=== PATIENT | male | born 1990 | race Caucasian/White ===

== ENCOUNTER 2017-02-10 17:40 | Emergency (ER) | payer BC, OTHER ==
[2017-02-10 18:35] VITALS: BP 109/68
--- NOTE | 2017-02-10 19:11 | UC ---
Respiratory Complaint HPI - HPI Summary HPI Summary: 27 y/o male present to the urgent care c/o persistent cough for the past 2 weeks. Pt states he can hear some rales in his Rt upper lobe. Pt has taking Mucinx w/o any improvement of symptoms. He has felt SOB at time. Cough is productive with yellowish phlegm. Pt denies nasal congestion, sore throat, chest pain, N/V/D, abdominal pain. Pt works as an EMT. - History of Current Complaint Chief Complaint: UCRespiratory Stated Complaint: URI Time Seen by Provider: 02/10/17 19:10 Hx Obtained From: Patient Onset/Duration: Gradual Onset, Lasting Weeks - 2 weeks, Still Present Timing: Constant Severity Initially: Mild Severity Currently: Moderate Pain Intensity: 0 Pain Scale Used: 0-10 Numeric Character: Sputum Description: - yellowish and brown at times Aggravating Factors: Nothing Alleviating Factors: Nothing Associated Signs And Symptoms: Positive: Dyspnea - at times. Negative: Fever, Wheezing - Risk Factors Pulmonary Embolism Risk Factors: Negative Cardiac Risk Factors: Negative Pseudomonas Risk Factors: Negative Tuberculosis Risk Factors: Negative - Allergies/Home Medications Allergies/Adverse Reactions: Allergies Allergy/AdvReac Type Severity Reaction Status Date / Time No Known Allergies Allergy Verified 02/10/17 18:35 Home Medications: Home Medications Levocarnitine [l-Carnitine] 2 tab PO DAILY 02/10/17 [History Confirmed 02/10/17] Shred Fx - Testosterone Booster 2 tab PO DAILY 02/10/17 [History Confirmed 02/10] PMH/Surg Hx/FS Hx/Imm Hx Previously Healthy: Yes - Pt denies PMHX - Surgical History Surgical History: None - Family History Known Family History: Positive: Diabetes - Social History Occupation: Employed Full-time Lives: With Family Alcohol Use: Rare Substance Use Type: None Smoking Status (MU): Never Smoked Tobacco Review of Systems Constitutional: Negative Skin: Negative Eyes: Negative ENT: Negative Respiratory: Shortness Of Breath, Cough - productive yellow phlegm Gastrointestinal: Negative Genitourinary: Negative Motor: Negative Neurovascular: Negative Musculoskeletal: Negative Neurological: Negative Psychological: Negative Is Patient Immunocompromised?: No All Other Systems Reviewed And Are Negative: Yes Physical Exam Triage Information Reviewed: Yes Appearance: Well-Appearing, No Pain Distress, Well-Nourished, Thin Vital Signs: Initial Vital Signs Temp 98.5 F 02/10/17 18:31 Pulse 61 02/10/17 18:31 Resp 16 02/10/17 18:31 BP 109/68 02/10/17 18:31 Pulse Ox 99 02/10/17 18:31 Vital Signs Reviewed: Yes Eye Exam: Normal Eyes: Positive: Conjunctiva Clear - PERRLA ,EOMI ENT Exam: Normal ENT: Positive: Normal ENT inspection, Hearing grossly normal, Pharynx normal, TMs normal Dental Exam: Normal Neck exam: Normal Neck: Positive: Supple, Nontender, No Lymphadenopathy Respiratory: Positive: Chest non-tender, Normal breath sounds, No respiratory distress, Crackles - superior anterior and posteriot RT lungs with scattered crackles, Rhonchi Cardiovascular Exam: Normal Cardiovascular: Positive: RRR, No Murmur, Pulses Normal Abdominal Exam: Normal Abdomen Description: Positive: Nontender, No Organomegaly, Soft. Negative: CVA Tenderness (R), CVA Tenderness (L) Bowel Sounds: Positive: Present Musculoskeletal Exam: Normal Musculoskeletal: Positive: Strength Intact, ROM Intact, No Edema Neurological Exam: Normal Psychological Exam: Normal Skin Exam: Normal UC Diagnostic Evaluation - Laboratory O2 Sat by Pulse Oximetry: 99 Respiratory Course/Dx - Course Course Of Treatment: 27 y/o male present to the urgent care c/o persistent cough for the past 2 weeks. Pt states he can hear some rales in his Rt upper lobe. Pt has taking Mucinex w/o any improvement of symptoms. He has felt SOB at time. Cough is productive with yellowish phlegm. Pt denies nasal congestion, sore throat, chest pain, N/V/D, abdominal pain. Pt works as an EMT. Hx obtained. PE abnormal findings: Respiratory: Positive: Chest non-tender, Normal breath sounds, No respiratory distress, Crackles - superior anterior and posteriot RT lungs with scattered crackles, Rhonchi. Chest X-ray ordered: negative, no active disease. Pt will be Tx for Acute Bronchitis. Rx Z-kena and Tessalon tabs PO to alleviate cough. Pt advised If symptoms do not improve or worsen or you develop SOB with fever pleas go to the ER for further treatment.Pt understood and agreed an left the clinic ambulating. - Differential Dx/Diagnosis Differential Diagnosis/HQI/PQRI: Asthma, Bronchitis, Influenza, Lower Resp Infection, Sinusitis, Other Provider Diagnoses: 1-Acute bronchitis Discharge - Discharge Plan Condition: Stable Disposition: HOME Prescriptions: Azithromycin TAB* [Zithromax TAB*] 250 mg PO DAILY #6 tab Benzonatate CAP* [Tessalon CAP*] 100 - 200 mg PO TID PRN #28 cap PRN Reason: Cough Patient Education Materials: Acute Bronchitis (ED) Referrals: No Primary Care Phys,NOPCP [Primary Care Provider] - If Needed Additional Instructions: 1-Please take full course of antibiotic to avoid resistance. 2-Take Tessalon PO tabs as directed and use the albuterol inhaler to alleviate sough. Increase fluid intake, rest and eat well. 3- If symptoms do not improve or worsen or you develop SOB with fever pleas go to the ER for further treatment.
--- NOTE | 2017-02-10 19:41 | RAD ---
INDICATION: Cough with shortness of breath COMPARISON: None TECHNIQUE: PA and lateral dual-energy views were obtained. FINDINGS: Bones/Soft Tissues: There are no acute bony findings. Cardiomediastinal: The cardiomediastinal silhouette is normal. Lungs: There are no infiltrates. Pleura: There are no pleural effusions. Other: None IMPRESSION: NO ACTIVE DISEASE.
== END 2017-02-10 20:01 | disposition home or self-care (01) ==
LOC: UCEAST 17:40
DX: J20.9 Acute bronchitis, unspecified (principal)
CPT/HCPCS: 71020; 99212; G0463

== ENCOUNTER 2017-09-03 06:01 | Emergency (ER) | payer OTHER, BC ==
[2017-09-03 06:41] VITALS: BP 130/78
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
== END 2017-09-03 06:40 | disposition home or self-care (01) ==
LOC: ED 06:01
DX: Z77.21 Contact with and (suspected) exposure to potentially hazardous body fluids (principal)
CPT/HCPCS: 36415; 80074; 86703; 99282

== ENCOUNTER 2019-06-14 18:05 | Emergency (ER) | payer OTHER ==
--- OUTSIDE RECORDS SUMMARY | 2019-06-14 19:16 | XMS REPORT | Continuity of Care Document ---
:1990 External Reference #:[id number] Demographics Address [address] [facility] [address] [place] [address] Home Phone [phone] Mobile Phone [phone] Email Address Preferred Language en Marital Status Not or Rastafari Affiliation Unknown Race White Ethnic Group Not or Author Name Dalia Wooten, PNP-BC, [employer], Ibclc Address [address] [place] [id number] Care Team Providers Name Role Phone Charu Hauser PA - Medical Care Team Information [employer] [phone] Charu Hauser PA - Medical Care Team Information [employer] [phone] Problems Active Problems Provider Date Genital warts Hema Lai M.D. Onset: 03/24/2019 Social History Type Date Description Comments Sex Unknown ETOH Use Currently consumes Drinks once in a alcohol socially while. 2 drinks max Tobacco Use Start: Unknown Patient denies history tried it for 1 week of smoking in college. Recreational Drug Use Denies Drug Use Smoking Status Reviewed: 06/08/19 Patient denies history tried it for 1 week of smoking in college. Exercise Type/Frequency Exercises regularly 5 days a week cardio and functional fitness. Allergies, Adverse Reactions, Alerts Description No Known Drug Allergies Medications Active Medications SIG Qnty Indications Ordering Date Provider Cyclobenzaprine HCL take one tablet 30tabs M62.830 Dalia Wooten, 2019 5mg by mouth three PNP-BC, [employer], Tablets times a day as Ibclc needed for muscle spasms History Medications No Active Unknown 05/20/2019 - Medications 06/08/2019 Saline Nasal [place] 2 sprays intranasal 1units J06.9 Bart Eli MD 2018 - every 2 hours 05/20/2019 0.65% Solution congestion or nasal dryness Immunizations CPT Code Status Date Vaccine Lot # [id number] Given 03/31/2019 Influenza Virus Vaccine, Quadrivalent, 36 Mos+, [id number] [id number] Given 1992 Hemophilus Influenza B 12312 Given 1992 DTP Vaccine 29089 Given 1992 Hemophilus Influenza B 30989 Given 1992 Poliovirus Vaccine Oral 52572 Given 1992 DTP Vaccine Vital Signs Date Vital Result Comment 06/08/2019 11:16am BP Systolic 118 mmHg BP Diastolic 72 mmHg Heart Rate 82 /min Respiratory Rate 17 /min Height 71 inches 5'11" Pt stated Weight 212.00 lb BMI (Body Mass Index) 29.6 kg/m2 BSA (Body Surface Area) 2.16 m2 [place] body weight in kilograms 78 kg 05/20/2019 8:55am BP Systolic 122 mmHg BP Diastolic 76 mmHg Body Temperature 97.5 F Heart Rate 58 /min Respiratory Rate 16 /min Height 71 inches 5'11" Pt stated Weight 210.00 lb Pain Level 0 BMI (Body Mass Index) 29.3 kg/m2 BSA (Body Surface Area) 2.15 m2 [place] body weight in kilograms 78 kg O2 % BldC Oximetry 98 % Results Description No Information Available Procedures Date Code Description Status 04/20/2019 46391 Destruction Penis Lesion(S) Simple Laser Surgery Completed 03/21/2019 89334 Excision Of Warts Less Than 15 Completed Medical Devices Description No Information Available Encounters Type Date Location Provider Dx Diagnosis Office Visit 06/08/2019 Family Medicine Dalia Wooten, M62.830 Muscle spasm of 11:15a [place] PNP-BC, [employer], back Ibclc Office Visit 05/20/2019 Urology Hema Lai, A63.0 Anogenital 9:00a [place] (venereal) warts Office Visit 03/31/2019 Family Medicine Bart Eli MD J06.9 Acute upper 8:10a [address] respiratory infection, unspecified Z23 Encounter for immunization Office Visit 03/24/2019 8:45a Urology Kassie Lai3.0 Anogenital [place] (venereal) warts Office Visit 03/21/2019 8:15a Family Medicine Charu Hauser, B07.9 Viral wart, [address] [place] unspecified Assessments Date Code Description Provider 06/08/2019 M62.830 Muscle spasm of back Dalia Wooten PNP-BC, [employer], Ibclc 05/20/2019 A63.0 Anogenital (venereal) warts Hema Lai M.D. 04/20/2019 A63.0 Anogenital (venereal) warts Hema Lai M.D. 03/31/2019 J06.9 Acute upper respiratory infection, Bart Eli MD unspecified 03/31/2019 Z23 Encounter for immunization Bart Eli MD 03/24/2019 A63.0 Anogenital (venereal) warts Hema Lai M.D. 03/21/2019 B07.9 Viral wart, unspecified Charu Hauser PA 02/08/2019 Z00.01 Encounter for general adult medical Charu Hauser PA examination with abnormal findings 02/08/2019 A63.0 Anogenital (venereal) warts Charu Hauser PA 02/08/2019 B07.9 Viral wart, unspecified Charu Hauser PA Plan of Treatment Future Appointment(s):06/16/2019 3:45 pm - Dalia Wooten, EDI-BC, [employer], Ibclc at [facility] RD06/08/2019 - Dalia Wooten PNP-BC, [employer], MrbuwO86.830 Muscle spasm of backNew Medication:Cyclobenzaprine HCL 5 mg - take one tablet by mouth three times a day as needed for muscle spasmsComments:continue with 600mg motrin tid for 5-7 days and use the cyclobenzaprine. and a massage would be a good idea.we'll have you on light duty for a week and see how it's going. if it's not better let us know and we'll get you into PT and get an xray. Functional Status Description No Information Available Mental Status Description No Information Available Referrals Refer to Dr Reason for Referral Status Appt Date Hema Lai M.D. Genital warts. Has been using Imiquimod. Closed 2018 Lesions are very slowly resolving. However, he does have some new ones as well. [address], [place] [address] [phone]
--- OUTSIDE RECORDS SUMMARY | 2019-06-14 19:16 | XMS REPORT | Continuity of Care Document ---
:1990 External Reference #:[id number] Demographics Address [address] [facility] [address] [place] [address] Home Phone [phone] Mobile Phone [phone] Email Address Preferred Language en Marital Status Not or Scientology Affiliation Unknown Race White Ethnic Group Not or Author Name Hema Lai M.D. Address [address] [address] Care Team Providers Name Role Phone Charu Hauser PA - Medical Care Team Information Material Dispatcher [phone] Charu Hauser PA - Medical Care Team Information Material Dispatcher [phone] Problems Active Problems Provider Date Genital warts Hema Lai M.D. Onset: 03/24/2019 Social History Type Date Description Comments Sex Unknown ETOH Use Currently consumes Drinks once in a alcohol socially while. 2 drinks max Tobacco Use Start: Unknown Patient denies history tried it for 1 week of smoking in college. Recreational Drug Use Denies Drug Use Smoking Status Reviewed: 05/03/19 Patient denies history tried it for 1 week of smoking in college. Exercise Type/Frequency Exercises regularly 5 days a week cardio and functional fitness. Allergies, Adverse Reactions, Alerts Description No Known Drug Allergies Medications Active Medications SIG Qnty Indications Ordering Provider Date No Active Medications Unknown 05/20/2019 History Medications Saline Nasal [place] 2 sprays intranasal 1units J06.9 Bart Eli MD 2018 - every 2 hours 05/20/2019 0.65% Solution congestion or nasal dryness Immunizations CPT Code Status Date Vaccine Lot # [id number] Given 03/31/2019 Influenza Virus Vaccine, Quadrivalent, 36 Mos+, [id number] 32165 Given 1992 Hemophilus Influenza B 11326 Given 1992 DTP Vaccine 08761 Given 1992 Hemophilus Influenza B 71447 Given 1992 Poliovirus Vaccine Oral 30043 Given 1992 DTP Vaccine Vital Signs Date Vital Result Comment 05/20/2019 8:55am BP Systolic 122 mmHg BP Diastolic 76 mmHg Body Temperature 97.5 F Heart Rate 58 /min Respiratory Rate 16 /min Height 71 inches 5'11" Pt stated Weight 210.00 lb Pain Level 0 BMI (Body Mass Index) 29.3 kg/m2 BSA (Body Surface Area) 2.15 m2 [place] body weight in kilograms 78 kg O2 % BldC Oximetry 98 % 03/31/2019 8:17am BP Systolic Sitting Left Arm 118 mmHg BP Diastolic Sitting Left Arm 74 mmHg Body Temperature 98.7 F Heart Rate 76 /min Respiratory Rate 18 /min Height 71 inches 5'11" Pt stated Weight 208.00 lb BMI (Body Mass Index) 29.0 kg/m2 BSA (Body Surface Area) 2.14 m2 [place] body weight in kilograms 78 kg Results Description No Information Available Procedures Date Code Description Status 04/20/2019 76324 Destruction Penis Lesion(S) Simple Laser Surgery Completed 03/21/2019 78790 Excision Of Warts Less Than 15 Completed Medical Devices Description No Information Available Encounters Type Date Location Provider Dx Diagnosis Office Visit 05/20/2019 Urology Hema Lai, A63.0 Anogenital 9:00a [place]doD[place]inaldo (venereal) warts Office Visit 03/31/2019 Family Medicine Bart Eli MD J06.9 Acute upper 8:10a [address] respiratory infection, unspecified Z23 Encounter for immunization Office Visit 03/24/2019 8:45a Urology Kassie Lai3.0 Anogenital [place] (venereal) warts Office Visit 03/21/2019 8:15a Family Medicine Charu Hauser, B07.9 Viral wart, [address] [place] unspecified Assessments Date Code Description Provider 05/20/2019 A63.0 Anogenital (venereal) warts Hema Lai [...] unspecified Charu Hauser PA Plan of Treatment 05/20/2019 - Hema Lai M.D.A63.0 Anogenital (venereal) wartsComments: Status post Laser ablation of genital warts. There is no recurrence. Questions that the patient and his partner had were answered today. Patient to follow-up with me as needed. Functional Status Description No Information Available Mental Status Description No Information Available Referrals Refer to Dr Reason for Referral Status Appt Date Hema Lai M.D. Genital warts. Has been using Imiquimod. Closed 2018 Lesions are very slowly resolving. However, he does have some new ones as well. [address], [place] [address] [phone]
[2019-06-14 19:23] VITALS: BP 118/63
--- NOTE | 2019-06-14 19:26 | UC ---
Shoulder Pain HPI - HPI Summary HPI Summary: 29 yo male presents with RIGHT shoulder pain. 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 Since that time has had pain and feeling like his shoulder is going to "drop out". He saw his PCP for this and was dx'd with a muscle strain and placed on flexeril. Pt has taken the flexeril and it helps, but makes him feel "high" and sleepy. He has recently been packing for a household move and states his right shoulder has been feeling worse. He was given a note to have no lifting >20pounds while at work, which is helpful. No imaging was done. Denies numbness, tingling, or neck pain. - History of Current Complaint Chief Complaint: UCUpperExtremity Stated Complaint: SHOULDER PAIN INJURY Time Seen by Provider: 06/14/19 19:25 Hx Obtained From: Patient Onset/Duration: Sudden Onset Severity Initially: Moderate Severity Currently: Mild Pain Intensity: 4 Pain Scale Used: 0-10 Numeric - Allergies/Home Medications Allergies/Adverse Reactions: Allergies Allergy/AdvReac Type Severity Reaction Status Date / Time No Known Allergies Allergy Verified 06/14/19 19:20 Home Medications: Home Medications Cyclobenzaprine TAB* [Flexeril 10 MG TAB*] 10 mg PO Q8HR PRN 06/14/19 [History Confirmed 06/14/19] Ibuprofen TAB* [Motrin TAB* 600 MG] 600 mg PO Q6H PRN 06/14/19 [History Confirmed 06/14/19] PMH/Surg Hx/FS Hx/Imm Hx - Additional Past Medical History Additional PMH: None - Surgical History Surgical History: Yes Surgery Procedure, Year, and Place: wisdom teeth - Family History Known Family History: Positive: Diabetes, Non-Contributory - Social History Occupation: Employed Full-time Lives: With Family Alcohol Use: Occasionally Substance Use Type: None Smoking Status (MU): Never Smoked Tobacco Review of Systems All Other Systems Reviewed And Are Negative: No Constitutional: Positive: Negative Skin: Positive: Negative Respiratory: Positive: Negative Cardiovascular: Positive: Negative Gastrointestinal: Positive: Negative Neurovascular: Positive: Negative Musculoskeletal: Positive: Other: - Right shoulder pain Neurological: Positive: Negative Psychological: Positive: Negative Physical Exam - Summary Physical Exam Summary: GENERAL: NAD. WDWN. No pain distress. SKIN: No rashes, sores, lesions, or open wounds. CHEST: No accessory muscle use. Breathing comfortably and in no distress. CV: Pulses intact radial and ulnar. Cap refill <2seconds MSK: RIGHT SHOULDER: Mild TTP about supraspinatus. Pain with flexion against resistance. FROM. Strength 5/5. Negative apleys, empty can, stauffer-cira, neer, oscar, and yergason tests. NEURO: Alert. Sensations intact C4-T1 b/l. PSYCH: Age appropriate behavior. Triage Information Reviewed: Yes Vital Signs: Initial Vital Signs Temp 98.2 F 06/14/19 19:17 Pulse 78 06/14/19 19:17 Resp 16 06/14/19 19:17 BP 118/63 06/14/19 19:17 Pulse Ox 100 06/14/19 19:17 Vital Signs Reviewed: Yes Diagnostics - Radiology Shoulder XR Radiology Interpretation Completed By: ED Physician Summary of Radiographic Findings: No acute process Shoulder Course/Dx - Course Course Of Treatment: XR wet read negative. Suspect muscle strain/RTC injury. Advised to rest, ice, and will keep <20pound weight restriction. Will switch to naproxen and robaxin and have him f/u with Occ Med for further evaluation of his work related injury. - Differential Dx/Diagnosis Provider Diagnosis: Right shoulder pain Discharge ED - Sign-Out/Discharge Documenting (check all that apply): Patient Departure All imaging exams completed and their final reports reviewed: No - Discharge Plan Condition: Stable Disposition: HOME Prescriptions: Methocarbamol TAB* [Robaxin 500 MG TAB*] 1,000 mg PO Q6H PRN #40 tab PRN Reason: Spasms Naproxen [Naproxen 500 mg tab] 500 mg PO BID PRN #30 tablet.dr PRN Reason: Pain - Mild Patient Education Materials: Shoulder Pain (ED) Forms: *Work Release Referrals: Aron Fernandes MD [Medical Doctor] - As Soon As Possible Charu Hauser PA [Primary Care Provider] - Additional Instructions: If you develop a fever, shortness of breath, chest pain, new or worsening symptoms - please call your PCP or go to the ED immediately. 1) Rest and Ice your shoulder to decrease pain 2) I recommend that you call Physical therapy to schedule an appointment for further treatment 3) I recommend that you call Dr. Fernandes (Occupational Health) to schedule an appointment for further evaluation of your work related injury 4) Keep your follow up with your Primary doctor for a recheck in 2 days Do not take ibuprofen with naproxen as these medications are related and may interact - Billing Disposition and Condition Condition: STABLE Disposition: Home
--- NOTE | 2019-06-15 11:55 | UC ---
- Progress Note Progress Note: Patient Name: JESUS PENDLETON Medical Record#: [id number] Ordering Physician: Axel AQUINO Acct.#: [id number] : 1990 Age: 29 Sex: M Location: [facility] Exam Date: 06/14/191924 ADM Status: [facility] ER Order Information: SHOULDER RIGHT 2+ VWS Accession Number: [id number] CPT: 67861 INDICATION: Right shoulder injury. TECHNIQUE: 4 views of the right shoulder were obtained. FINDINGS: The bones are in normal alignment. No fracture is seen. The glenohumeral and acromioclavicular joint spaces appear maintained. IMPRESSION: NO EVIDENCE FOR FRACTURE. R0 Preliminary Imaging Read R0 <Electronically signed by Deangelo Preston MD in OV> 06/15/19714 Dictated By: Deangelo Preston MD Dictated Date/Time: 06/15/19713 Transcribed Date/Time: 06/15/19713 Copy to: CC:Flor Franco MD; Charu AQUINO; Axel AQUINO Imaging - [facility] Imaging [facility] Urgent [facility] [address] [place] [address] ph [phone]) ph ([phone]) ph ([phone]) This report is only to be considered final once signed by the Provider(s) as displayed in the "<Electronically Signed by >" field (s). Absence of a signature indicates the report is in a draft status and still needs to be finalized. In the event this document was created by someone other than the signing Provider, the individual initiating the document will be listed in the "Entered by:" or "Dictated by:" garcia. 1 of 1 Course/Dx - Diagnoses Provider Diagnoses: Right shoulder pain Discharge ED - Sign-Out/Discharge Documenting (check all that apply): Post-Discharge Follow Up All imaging exams completed and their final reports reviewed: Yes - Discharge Plan Condition: Stable Disposition: HOME Prescriptions: Methocarbamol TAB* [Robaxin 500 MG TAB*] 1,000 mg PO Q6H PRN #40 tab PRN Reason: Spasms Naproxen [Naproxen 500 mg tab] 500 mg PO BID PRN #30 tablet.dr KWONG Reason: Pain - Mild Patient Education Materials: Shoulder Pain (ED) Forms: *Work Release Referrals: Aron Fernandes MD [Medical Doctor] - As Soon As Possible Charu Hauser PA [Primary Care Provider] - Additional Instructions: If you develop a fever, shortness of breath, chest pain, new or worsening symptoms - please call your PCP or go to the ED immediately. 1) Rest and Ice your shoulder to decrease pain 2) I recommend that you call Physical therapy to schedule an appointment for further treatment 3) I recommend that you call Dr. Fernandes (Occupational Health) to schedule an appointment for further evaluation of your work related injury 4) Keep your follow up with your Primary doctor for a recheck in 2 days Do not take ibuprofen with naproxen as these medications are related and may interact - Billing Disposition and Condition Condition: STABLE Disposition: Home
== END 2019-06-14 19:59 | disposition home or self-care (01) ==
LOC: UCCORT 18:05
DX: M25.511 Pain in right shoulder (principal); X50.9XXA Other and unspecified overexertion or strenuous movements or postures, initial encounter; Y93.89 Activity, other specified; Y92.9 Unspecified place or not applicable; Y99.0 Civilian activity done for income or pay
CPT/HCPCS: 99212; G0463

== ENCOUNTER 2019-09-24 10:57 | Emergency (ER) | payer OTHER ==
--- OUTSIDE RECORDS SUMMARY | 2019-09-24 11:13 | XMS REPORT | Continuity of Care Document ---
:1990 External Reference #:[id number] Author Name Dalia Wooten, PNP-BC, CONFERENCE TRANSLATOR, Ibclc (transmitted by agent of provider Katiuska Garrison) Address [address] [place], [place] [address] [address] [place] [id number] Care Team Providers Name Role Phone Charu Hauser PA - Medical Care Team Information Home Health Aide Caregiver [phone] Charu Hauser PA - Medical Care Team Information Home Health Aide Caregiver [phone] Problems Active Problems Provider Date Adjustment disorder with mixed emotional Charu Hauser PA Onset: 06/27/2019 features Genital warts Hema Lai M.D. Onset: 03/24/2019 Social History Type Date Description Comments Sex Unknown ETOH Use Rarely consumes alcohol Tobacco Use Start: Unknown Patient denies history tried it for 1 week of smoking in college. Recreational Drug Use Denies Drug Use Smoking Status Reviewed: 08/18/19 Patient denies history tried it for 1 week of smoking in college. Exercise Type/Frequency Exercises regularly 5 days a week cardio and functional fitness. Allergies, Adverse Reactions, Alerts Description No Known Drug Allergies Medications Active Medications SIG Qnty Indications Ordering Provider Date Escitalopram Oxalate 1 by mouth 90tabs F43.23 Angelia Castaneda MD 2019 5mg every day Tablets History Medications No Active Medications Unknown 06/27/2019 - 06/27/2019 Escitalopram Oxalate 1/2 by mouth 30tabs F43.23 Leonel 06/27/2019 - 10mg daily during MD Angelia 07/25/2019 Tablets first week, then increase to 1 by mouth every day Sildenafil Citrate 1-2 tab by mouth 30tabs F52.4 Leonel 06/27/2019 - 20mg as directed for MD Angelia 07/25/2019 Tablets ed Cyclobenzaprine HCL take one tablet 30tabs M62.830 Dalia Wooten, 2019 - 5mg by mouth three PNP-MARYELLEN LICONA, 06/16/2019 Tablets times a day as Ibclc needed for muscle spasms No Active Medications Unknown 05/20/2019 - 06/08/2019 Saline Nasal [place] 2 sprays 1units J06.9 Bart Eli, 03/31/2019 - 0.65% intranasal every 05/20/2019 Solution 2 hours congestion or nasal dryness Immunizations CPT Code Status Date Vaccine Lot # [id number] Given 03/31/2019 Influenza Virus Vaccine, Quadrivalent, 36 Mos+, [id number] 10972 Given 1990 Hemophilus Influenza B 99043 Given 1990 DTP Vaccine 06390 Given 1990 Hemophilus Influenza B 08240 Given 1990 Poliovirus Vaccine Oral 91434 Given 1990 DTP Vaccine Vital Signs Date Vital Result Comment 08/18/2019 2:53pm BP Systolic 138 mmHg BP Diastolic 82 mmHg Body Temperature 98.1 F Heart Rate 97 /min Respiratory Rate 18 /min Height 71 inches 5'11" Weight 214.00 lb BMI (Body Mass Index) 29.8 kg/m2 BSA (Body Surface Area) 2.17 m2 [place] body weight in kilograms 78 kg O2 % BldC Oximetry 97 % 08/17/2019 2:34pm BP Systolic 127 mmHg BP Diastolic 81 mmHg Body Temperature 99.2 F Heart Rate 89 /min Respiratory Rate 18 /min Height 71 inches 5'11" Weight 212.00 lb BMI (Body Mass Index) 29.6 kg/m2 BSA (Body Surface Area) 2.16 m2 [place] body weight in kilograms 78 kg O2 % BldC Oximetry 99 % Results Test Acquired Date Facility Test Result H/L Range Note Comprehensive 07/01/[address] [facility] [address] Glucose 105 mg/dL Normal 74- 106 1 Metabolic Panel [address] [place] [address] [phone] BUN 18 mg/dL Normal 7-18 Creatinine 1.1 mg/dL Normal 0.6-1.3 Glom Filtration Rate, Estimate >60 mL/min >60 If >60 mL/min >60 2 BUN/Creat 16.3 ratio Sodium 138 mmol/L Normal 136-145 Potassium 3.8 mmol/L Normal 3.5-5.1 Chloride 106 mmol/L Normal 98-107 Carbon Dioxide 27 mmol/L Normal 21-32 Anion Gap 5 mEq/L Low 8-16 Calcium 8.9 mg/dL Normal 8.5-10.1 Total Protein 7.7 g/dL Normal 6.4-8.2 Albumin 3.9 g/dL Normal 3.4-5.0 Globulin 3.8 g/dL Normal 1.9-4.3 Alb/Glob 1.0 ratio Bilirubin,Total 0.4 mg/dL Normal 0.2-1.0 Sgot/Ast 18 U/L Normal 15-37 SGPT/Alt 27 U/L Normal 12-78 Alkaline Phosphatase 66 U/L Normal 45-117 Reflex add FT3? Y Reflex add FT4? Y CBC W/Automated 07/01/[address] [facility] [address] White Blood 4.8 K/uL Normal 3.4-10.[address] Count [place], [place] [id number] [phone] Red Blood Count 5.25 M/uL Normal 4.20-5.80 Hemoglobin 15.9 gm/dL Normal 12.8-17.0 Hematocrit 45.7 % Normal 38.0-48.0 Mean Cell Volume 87.0 fl Normal 80.0-96.0 Mean Corpuscular HGB 30.3 pg Normal 27.0-33.0 Mean Corpuscular HGB Conc 34.8 g/dL Normal 31.7-36.0 Platelet Count 201 K/uL Normal 155-360 Red Cell Distri Width SD 38.5 fl Normal 36-51 Red Cell Distri Width %CV 12.0 % Normal 11.6-15.8 Mean Platelet Volume 11.5 fl High 6.6-10.6 Neut% 44.6 % Normal 33.0-73.0 Lymph % 40.1 % Normal 20.0-42.0 [place] % 9.5 % Normal 0.0-10.0 Eo% 5.0 % Normal 0.0-6.6 Bas% 0.6 % Normal 0.0-1.1 Immature Grans 0.2 % Normal 0.0-5.0 NRBC % 0.0 /100WBC < 10/ 100 WBC Neut# 2.16 K/uL Normal 1.8-7.0 Lymph # 1.94 K/uL Normal 1.0-4.0 [place] # 0.46 K/uL Normal 0.0-0.8 Eos # 0.24 K/uL Normal 0.0-0.5 Baso # 0.03 K/uL Normal 0.0-0.1 Immature Grans Absolute 0.01 K/uL NRBC # 0.00 K/uL TSH Reflex 07/01/[address] Thyroid Stim 3.41 uIU/mL Normal 0.30-4.20 FT4 And/Or [address] [facility] Hormone FT3 [place] [address] [phone] Reflex add FT3? Y Reflex add FT4? Y Laboratory test 07/01/[address] Testosterone Free 13.9 9.3- 26.5 3 finding [address] [facility] Direct pg/mL [place], [place] [id number] [phone] LDL Cholesterol 07/01/[address] Cholesterol 188 mg/dL <200 4 Profile [address] [place], [place] [id number] [phone] Triglycerides 116 mg/dL <150 5 HDL Cholesterol 44 mg/dL >40 6 LDL-Cholesterol 121 mg/dL < 100 7 Reflex add FT3? Y Reflex add FT4? Y Urine Dipstick 06/27/2019 [facility] Ua Color yellow Yellow Ua Clarity clear Clear Ua Leuko negative Negative Ua Nitrite negative Negative Ua Urobilinogen 3.5umol/L High 0.2 - 1.0 E.U./dL Ua Protein negative Negative Ua PH 7.0 6.5-7.5 Ua Blood negative Negative Ua Specific [place] 1.020 1.010-1.030 Ua Ketones negative Negative Ua Bilirubin negative Negative Ua Glucose negative Negative 1 F52.4 Z13.220 2 Note: Persistent reduction for 3 months or more in an eGFR <60 mL/min/1.73 m2 defines CKD. Patients with eGFR values >/=60 mL/min/1.73 m2 may also have CKD if evidence of persistent proteinuria is present. The original MDRD equation for estimated GFR is not valid for patients less than 18 years of age. Additional information may be found at www.kdoqi.org. 3 Performed at: [facility] [address] [id number] Data Reduction Technician: Debra Ayala MD, Phone: [phone] 4 Reference Guidelines*: Desirable: ........... < 200 mg/dL Borderline High: ..... 200-239 mg/dL High: ................ >= 240 mg/dL * The National Cholesterol Education Program (NCEP) 5 Reference Guidelines*: Normal: ............. < 150 mg/dL Borderline High: .... 150-199 mg/dL High: ............... 200-499 mg/dL Very High: .......... > 500 mg/dL * Source: National Cholesterol Education Program (NCEP) 6 Reference Guidelines*: Low HDL: ..... < 40 mg/dL Normal: ..... 40-60 mg/dL Desirable: ... > 60 mg/dL *The National Cholesterol Education Program(NCEP) 7 Reference Guidelines*: Optimal:........... <100 mg/dL Near Optimal....... 100-129 mg/dL Borderline High.... 130-159 mg/dL High............... 160-189 mg/dL Very High.......... >=190 mg/dL * Source: National Cholesterol Education Program (NCEP) Procedures Date Code Description Status 07/25/2019 01961 Brief Emotional/Behav Assessment W/ Scoring Doc Per Completed Standard Inst 06/27/2019 31786 Brief Emotional/Behav Assessment W/ Scoring Doc Per Completed Standard Inst 04/20/2019 32597 Destruction Penis Lesion(S) Simple Laser Surgery Completed 03/21/2019 48622 Excision Of Warts Less Than 15 Completed Medical Devices Description No Information Available Encounters Type Date Location Provider Dx Diagnosis Office Visit 08/17/2019 Family Medicine Bart Eli MD J06.9 Acute upper 2:30p [address] respiratory infection, unspecified Office Visit 07/25/2019 Family Medicine Charu Hauser, F43.23 Adjustment disorder 1:00p [address] PA with mixed anxiety and depressed mood F52.4 Premature ejaculation Office Visit 06/27/2019 3:10p Family Medicine Charu Hauser, F43.[address] PA disorder with mixed anxiety and depressed mood F52.4 Premature ejaculation Z13.220 Encounter for screening for lipoid disorders Office Visit 06/16/2019 3:45p Family Medicine Dalia Wooten, M25.511 Pain in right [address] PNP-BC, CONFERENCE TRANSLATOR, shoulder Ibclc Office Visit 06/08/2019 11:15a Family Medicine Dalia Wooten, M62.830 Muscle spasm of [address] PNP-BC, CONFERENCE TRANSLATOR, back Ibclc Office Visit 05/20/2019 9:00a Urology Ming A63.0 Anogenital Allen Garrido (venereal) warts Office Visit 03/31/2019 8:10a Family Medicine Bart Eli, J06.[address] MD respiratory infection, unspecified Z23 Encounter for immunization Office Visit 03/24/2019 8:45a Urology Ming A63.0 Anogenital Allen Garrido (venereal) warts Office Visit 03/21/2019 8:15a Family Medicine Charu Hauser, B07.9 Viral wart, [address] RD PA unspecified Assessments Date Code Description Provider 08/18/2019 J06.9 Acute upper respiratory infection, Dalia Wooten PNP-BC, CONFERENCE TRANSLATOR, unspecified Ibclc 08/17/2019 J06.9 Acute upper respiratory infection, Bart Eli MD unspecified 07/25/2019 F43.23 Adjustment disorder with mixed Charu Hauser, PA anxiety and depressed mood 07/25/2019 F52.4 Premature ejaculation Charu Hauser PA 06/27/2019 F43.23 Adjustment disorder with mixed Charu Hauser, PA anxiety and depressed mood 06/27/2019 F52.4 Premature ejaculation Charu Hauser PA 06/27/2019 Z13.220 Encounter for screening for lipoid Charu Hauser, PA disorders 06/16/2019 M25.511 Pain in right shoulder Dalia Wooten PNP-BC, CONFERENCE TRANSLATOR, Ibclc 06/08/2019 M62.830 Muscle spasm of back Dalia Wooten PNP-BC, CONFERENCE TRANSLATOR, Ibclc 05/20/2019 A63.0 Anogenital (venereal) warts Hema Lai M.D. 04/20/2019 A63.0 Anogenital (venereal) warts Hema Lai M.D. 03/31/2019 J06.9 Acute upper respiratory infection, Bart Eli MD unspecified 03/31/2019 Z23 Encounter for immunization Bart Eli MD 03/24/2019 A63.0 Anogenital (venereal) warts Hema Lai M.D. 03/21/2019 B07.9 Viral wart, unspecified Charu Hauser PA Plan of Treatment 08/18/2019 - Dalia Wooten, EDI-BC, CONFERENCE TRANSLATOR, [id number] Acute upper respiratory infection, unspecifiedComments:Supportive care Tylenol/Motrin as needed for fever or discomfort.Call if no improvement in 5-7 days, worsening signs/symptoms , new concerns or fever over 101 for more than 3 days.Push fluids; Netti Bottle is very helpful for nasal congestion. As is 4 hour Sudafed...you need to get from the pharmacistbut it is over the counter.Vicks for congestion and delsym if needed for cough mucinex may also helploosen the chest congestion Functional Status Description No Information Available Mental Status Description No Information Available Referrals Refer to Reason for Referral Status Appt Date Hema Lai M.D. Genital warts. Has been using Imiquimod. Closed 2018 Lesions are very slowly resolving. However, he does have some new ones as well. [address], [place] [address] [phone]
--- OUTSIDE RECORDS SUMMARY | 2019-09-24 11:13 | XMS REPORT | Continuity of Care Document ---
:1990 External Reference #:[id number] Author Name Bart Eli MD (transmitted by agent of provider Katiuska Garrison) Address [address] [place] [id number] Care Team Providers Name Role Phone Charu Hauser PA - Medical Care Team Information Restaurant Manager [phone] Charu Hauser PA - Medical Care Team Information Restaurant Manager [phone] Problems Active Problems Provider Date Adjustment disorder with mixed emotional Charu Hauser PA Onset: 06/27/2019 features Genital warts Hema Lai M.D. Onset: 03/24/2019 Social History Type Date Description Comments Sex Unknown ETOH Use Rarely consumes alcohol Tobacco Use Start: Unknown Patient denies history tried it for 1 week of smoking in college. Recreational Drug Use Denies Drug Use Smoking Status Reviewed: 08/17/19 Patient denies history tried it for 1 [...] Cyclobenzaprine HCL take one tablet 30tabs M62.830 SugarDalia carlin, 2019 - 5mg by mouth three PNP-BC, ROOFER APPLICATOR, 06/16/2019 Tablets times a day as Ibclc needed for muscle spasms No Active Medications Unknown 05/20/2019 - 06/08/2019 Saline Nasal [place] 2 sprays 1units J06.9 Bart Eli, 03/31/2019 - 0.65% intranasal every MD 05/20/2019 Solution 2 hours congestion or nasal dryness Immunizations CPT Code Status Date Vaccine Lot # 72053 Given 03/31/2019 Influenza Virus Vaccine, Quadrivalent, 36 Mos+, [id number] 74053 Given 1992 Hemophilus Influenza B 52999 Given 1992 DTP Vaccine 47682 Given 1992 Hemophilus Influenza B 14510 Given 1992 Poliovirus Vaccine Oral 44482 Given 1992 DTP Vaccine Vital Signs Date Vital Result Comment 08/17/2019 2:34pm BP Systolic 127 mmHg BP Diastolic 81 mmHg Body Temperature 99.2 F Heart Rate 89 /min Respiratory Rate 18 /min Height 71 inches 5'11" Weight 212.00 lb BMI (Body Mass Index) 29.6 kg/m2 BSA (Body Surface Area) 2.16 m2 [place] body weight in kilograms 78 kg O2 % BldC Oximetry 99 % 07/25/2019 1:03pm BP Systolic 122 mmHg BP Diastolic 80 mmHg Body Temperature 97.0 F Heart Rate 61 /min Respiratory Rate 18 /min Height 71 inches 5'11" Weight 211.50 lb BMI (Body Mass Index) 29.5 kg/m2 BSA (Body Surface Area) 2.16 m2 [place] body weight in kilograms 78 kg O2 % BldC Oximetry 96 % Results Test Acquired Date Facility Test Result H/L Range Note Comprehensive 07/01/[address] [facility] [address] Glucose 105 mg/dL Normal 74- 106 1 Metabolic Panel [address] [place] [address] [phone] BUN 18 mg/dL Normal 7-18 Creatinine 1.1 [...] Blood 4.8 K/uL Normal 3.4-10.[address] [place] [address] [phone] Red Blood Count 5.25 M/uL Normal 4.20-5.80 [...] 33.0-73.0 Lymph % 40.1 % Normal 20.0-42.0 [place] % 9.5 % Normal 0.0-10.0 Eo% 5.0 % Normal 0.0-6.6 Bas% 0.6 % Normal 0.0-1.1 Immature Grans 0.2 % Normal 0.0-5.0 NRBC % 0.0 /100WBC < 10/ 100 WBC Neut# 2.16 K/uL Normal 1.8-7.0 Lymph # 1.94 K/uL Normal 1.0-4.0 [place] # 0.46 K/uL Normal 0.0-0.8 Eos # 0.24 K/uL Normal 0.0-0.5 Baso # 0.03 K/uL Normal 0.0-0.1 Immature Grans Absolute 0.01 K/uL NRBC # 0.00 K/uL TSH Reflex 07/01/[address] Thyroid Stim 3.41 uIU/mL Normal 0.30-4.20 FT4 And/Or 4077 [facility] Hormone FT3 [place], [place] [address] [phone] Reflex add FT3? Y Reflex add FT4? Y Laboratory test 07/01/[address] Testosterone Free 13.9 9.3- 26.5 3 finding 4077 [facility] Direct pg/mL [place], [place] [address] [phone] LDL Cholesterol 07/01/[address] Cholesterol 188 mg/dL <200 4 Profile [address] [place], [place] [address] [phone] Triglycerides 116 mg/dL <150 5 HDL Cholesterol 44 mg/dL >40 6 LDL-Cholesterol 121 mg/dL < 100 7 Reflex add FT3? Y Reflex add FT4? Y Urine Dipstick 06/27/2019 [facility] Ua Color yellow Yellow Ua Clarity clear Clear Ua Leuko negative Negative Ua Nitrite negative Negative Ua Urobilinogen 3.5umol/L High 0.2 - 1.0 E.U./dL Ua Protein negative Negative Ua PH 7.0 6.5-7.5 Ua Blood negative Negative Ua Specific [place] 1.020 1.010-1.030 Ua Ketones negative Negative Ua [...] be found at [email or web address]. 3 Performed at: RN - [facility] [address] [id number] Mental Retardation Nurse: Debra Ayala MD, Phone: [phone] Reference Guidelines*: Desirable: ........... < 200 [...] (NCEP) Procedures Date Code Description Status 07/25/2019 34631 Brief Emotional/Behav Assessment W/ Scoring Doc Per Completed Standard Inst 06/27/2019 39989 Brief Emotional/Behav Assessment W/ Scoring Doc Per Completed Standard Inst 04/20/2019 75485 Destruction Penis Lesion(S) Simple Laser Surgery Completed 03/21/2019 89233 Excision Of Warts Less Than 15 Completed Medical Devices Description No Information Available Encounters Type Date Location Provider Dx Diagnosis Office Visit 07/25/2019 Charu Will PA F43.23 Adjustment 1:00p Carlos SANDHU disorder with mixed anxiety and depressed mood F52.4 Premature ejaculation Office Visit 06/27/2019 3:10p Charu Will F43.[address] PA disorder with mixed anxiety and depressed mood F52.4 Premature ejaculation Z13.220 Encounter for screening for lipoid disorders Office Visit 06/16/2019 3:45p Family Medicine Dalia Wooten, M25.[address] Pain in right [address] PNP-BC, ROOFER APPLICATOR, shoulder Ibclc Office Visit 06/08/2019 11:15a Family Medicine Dalia Wooten, M62.[address] of [address] PNP-BC, ROOFER APPLICATOR, back Ibclc Office Visit 05/20/2019 9:00a Urology Ming A63.0 Anogenital Allen Garrido (venereal) warts Office Visit 03/31/2019 8:10a Family Medicine Bart Eli, J06.[address] MD respiratory infection, unspecified Z23 Encounter for immunization Office Visit 03/24/2019 8:45a Urology Ming, A63.0 Anogenital Allen Garrido (venereal) warts Office Visit 03/21/2019 8:15a Family Medicine Charu Hauser, B07.9 Viral wart, West RD PA unspecified Assessments Date Code Description Provider 07/25/2019 F43.23 Adjustment disorder with mixed Charu Hauser, PA anxiety and depressed mood 07/25/2019 F52.4 Premature ejaculation Charu Hauser PA 06/27/2019 F43.23 Adjustment disorder with mixed Charu Hauser, PA anxiety and depressed mood 06/27/2019 F52.4 Premature ejaculation Charu Hauser PA 06/27/2019 Z13.220 Encounter for screening for lipoid Charu Hauser, PA disorders 06/16/2019 M25.511 Pain in right shoulder Dalia Wooten PNP-BC, ROOFER APPLICATOR, Ibclc 06/08/2019 M62.830 Muscle spasm of back Dalia Wooten PNP-BC, ROOFER APPLICATOR, Ibclc 05/20/2019 A63.0 Anogenital (venereal) warts Hema Lai M.D. 04/20/2019 A63.0 Anogenital (venereal) warts Hema Lai M.D. 03/31/2019 J06.9 Acute upper respiratory infection, Bart Eli MD unspecified 03/31/2019 Z23 Encounter for immunization Bart Eli MD 03/24/2019 A63.0 Anogenital (venereal) warts Hema Lai M.D. 03/21/2019 B07.9 Viral wart, unspecified Charu Hauser PA Plan of Treatment No Information Available Functional Status Description No Information Available Mental Status Description No Information Available Referrals Refer to Dr Reason for Referral Status Appt Date Hema Lai M.D. Genital warts. Has been using Imiquimod. Closed 2018 Lesions are very slowly resolving. However, he does have some new ones as well. [address], [place] [address] [phone]
--- OUTSIDE RECORDS SUMMARY | 2019-09-24 11:13 | XMS REPORT | Continuity of Care Document ---
:1990 External Reference #:[id number] Author Name Charu Hauser PA (transmitted by agent of provider Afua Limon) Address [address] [place] [address] Care Team Providers Name Role Phone Charu Hauser PA - Medical Care Team Information Contour Sander [phone] Charu Hauser PA - Medical Care Team Information Contour Sander [phone] Problems Active Problems Provider Date Adjustment disorder with mixed emotional Charu Hauser PA Onset: 06/27/2019 features Genital warts Hema Lai M.D. Onset: 03/24/2019 Social History Type Date Description Comments Sex Unknown ETOH Use Rarely consumes alcohol Tobacco Use Start: Unknown Patient denies history tried it for 1 week of smoking in college. Recreational Drug Use Denies Drug Use Smoking Status Reviewed: 09/23/19 Patient denies history tried it for 1 [...] Medications Unknown 05/20/2019 - 06/08/2019 Saline Nasal [place] 2 sprays 1units J06.9 Bart Eli, 03/31/2019 - 0.65% intranasal every 05/20/2019 Solution 2 hours congestion or nasal dryness Immunizations CPT Code Status Date Vaccine Lot # 38978 Given 03/31/2019 Influenza Virus Vaccine, Quadrivalent, 36 Mos+, [id number] 43404 Given 1992 Hemophilus Influenza B 81043 Given 1992 DTP Vaccine 80711 Given 1992 Hemophilus Influenza B 41819 Given 1992 Poliovirus Vaccine Oral 27669 Given 1992 DTP Vaccine Vital Signs Date Vital Result Comment 09/23/2019 9:05am BP Systolic 118 mmHg BP Diastolic 72 mmHg Body Temperature 98.6 F Heart Rate 90 /min Respiratory Rate 18 /min Height 71 inches 5'11" Weight 213.50 lb BMI (Body Mass Index) 29.8 kg/m2 BSA (Body Surface Area) 2.17 m2 [place] body weight in kilograms 78 kg O2 % BldC Oximetry 95 % 08/18/2019 2:53pm BP Systolic 138 mmHg BP Diastolic 82 mmHg Body Temperature 98.1 F Heart Rate 97 /min Respiratory Rate 18 /min Height 71 inches 5'11" Weight 214.00 lb BMI (Body Mass Index) 29.8 kg/m2 BSA (Body Surface Area) 2.17 m2 [place] body weight in kilograms 78 kg O2 % BldC Oximetry 97 % Results Test Acquired Date Facility Test Result H/L Range Note Comprehensive 07/01/[address] [facility] [address] Glucose 105 mg/dL Normal 74- 106 1 Metabolic Panel [address] [place], [place] [id number] [phone] BUN 18 mg/dL Normal 7-18 Creatinine 1.1 [...] Blood 4.8 K/uL Normal 3.4-10.[address] Count [place], [place] [address] [phone] Red Blood Count 5.25 M/uL Normal 4.20-5.80 [...] 33.0-73.0 Lymph % 40.1 % Normal 20.0-42.0 [place] % 9.5 % Normal 0.0-10.0 Eo% 5.0 % Normal 0.0-6.6 Bas% 0.6 % Normal 0.0-1.1 Immature Grans 0.2 % Normal 0.0-5.0 NRBC % 0.0 /100WBC < 10/ 100 WBC Neut# 2.16 K/uL Normal 1.8-7.0 Lymph # 1.94 K/uL Normal 1.0-4.0 [place] # 0.46 K/uL Normal 0.0-0.8 Eos # 0.24 K/uL Normal 0.0-0.5 Baso # 0.03 K/uL Normal 0.0-0.1 Immature Grans Absolute 0.01 K/uL NRBC # 0.00 K/uL TSH Reflex 07/01/[address] Thyroid Stim 3.41 uIU/mL Normal 0.30-4.20 FT4 And/Or 4077 [facility] Hormone FT3 [place], [place] [id number] [phone] Reflex add FT3? Y Reflex add FT4? Y Laboratory test 07/01/[address] Testosterone Free 13.9 9.3- 26.5 3 finding 4077 [facility] Direct pg/mL [place], [place] [address] [phone] LDL Cholesterol 07/01/[address] Cholesterol 188 mg/dL <200 4 Profile [address] [place], [place] [address] [phone] Triglycerides 116 mg/dL <150 5 HDL Cholesterol [...] 6.5-7.5 Ua Blood negative Negative Ua Specific [place] 1.020 1.010-1.030 Ua Ketones negative Negative Ua [...] found at [email or web address]. 3 Performed at: [facility] [address] [id number] Staffing Branch Manager: Debra Ayala MD, Phone: [phone] Reference Guidelines*: Desirable: ........... < 200 [...] (NCEP) Procedures Date Code Description Status 07/25/2019 29591 Brief Emotional/Behav Assessment W/ Scoring Doc Per Completed Standard Inst 06/27/2019 85555 Brief Emotional/Behav Assessment W/ Scoring Doc Per Completed Standard Inst 04/20/2019 91527 Destruction Penis Lesion(S) Simple Laser Surgery Completed Medical Devices Description No Information Available Encounters Type Date Location Provider Dx Diagnosis Office Visit 08/18/2019 Family Medicine Dalia Wooten, J06.9 Acute upper 2:50p [address] PNP-BC, CIGARETTE MAKING MACHINE OPERATOR, respiratory Ibclc infection, unspecified Office Visit 08/17/2019 Family Medicine Bart Eli [...] M25.511 Pain in right [address] PNP-BC, CIGARETTE MAKING MACHINE OPERATOR, shoulder Ibclc Office Visit 06/08/2019 11:15a Family Medicine Dalia Wooten, M62.830 Muscle spasm of [address] PNP-BC, CIGARETTE MAKING MACHINE OPERATOR, back Ibclc Office Visit 05/20/2019 9:00a Urology Ming, A63.0 Anogenital Allen Garrido (venereal) warts Office Visit 03/31/2019 8:10a Family Medicine Bart Eli, J06.9 Acute upper Carlos SANDHU MD respiratory infection, unspecified Z23 Encounter for immunization Assessments Date Code Description Provider 09/23/2019 F43.23 Adjustment disorder with mixed AnalisaCharu bartlett, PA anxiety and depressed mood 08/18/2019 J06.9 Acute upper respiratory infection, Dalia Wooten PNP-BC, CIGARETTE MAKING MACHINE OPERATOR, unspecified Ibclc 08/17/2019 J06.9 Acute upper respiratory infection, Bart Eli MD unspecified 07/25/2019 F43.23 Adjustment disorder with mixed Clayton, Charu, PA anxiety and depressed mood 07/25/2019 F52.4 Premature ejaculation Charu Hauser, PA 06/27/2019 F43.23 Adjustment disorder with mixed Analisa, Charu, PA anxiety and depressed mood 06/27/2019 F52.4 Premature ejaculation Charu Hauser, PA 06/27/2019 Z13.220 Encounter for screening for lipoid Clayton, Charu, PA disorders 06/16/2019 M25.511 Pain in right shoulder Dalia Wooten PNP-BC, CIGARETTE MAKING MACHINE OPERATOR, Ibclc 06/08/2019 M62.830 Muscle spasm of back Dalia Wooten PNP-BC, CIGARETTE MAKING MACHINE OPERATOR, Ibclc 05/20/2019 A63.0 Anogenital (venereal) warts Hema Lai M.D. 04/20/2019 A63.0 Anogenital (venereal) warts Hema Lai M.D. 03/31/2019 J06.9 Acute upper respiratory infection, Bart Eli MD unspecified 03/31/2019 Z23 Encounter for immunization Bart Eli MD Plan of Treatment No Information Available Functional Status Description No Information Available Mental Status Description No Information Available Referrals Description No Information Available
--- OUTSIDE RECORDS SUMMARY | 2019-09-24 11:13 | XMS REPORT | Continuity of Care Document ---
:1990 External Reference #:[id number] Author Name Bart Eli MD (transmitted by agent of provider Kym Beard) Address [address] [place] [id number] Care Team Providers Name Role Phone Charu Hauser PA - Medical Care Team Information Vice President Of Manufacturing [phone] Charu Hauser PA - Medical Care Team Information Vice President Of Manufacturing [phone] Problems Active Problems Provider Date Adjustment disorder [...] 2019 - 5mg by mouth three PNP-BC, CANCER GENETICS ASSISTANT, 06/16/2019 Tablets times a day as Ibclc needed for muscle spasms No Active Medications Unknown 05/20/2019 - 06/08/2019 Saline Nasal [place] 2 sprays 1units J06.9 Bart Eli, 03/31/2019 - 0.65% intranasal every MD 05/20/2019 Solution 2 hours congestion or nasal dryness Immunizations CPT Code Status Date Vaccine Lot # 09955 Given 03/31/2019 Influenza Virus Vaccine, Quadrivalent, 36 Mos+, [id number] .[id number] 68129 Given 1992 Hemophilus Influenza B 13523 Given 1992 DTP Vaccine 43920 Given 1992 Hemophilus Influenza B 50454 Given 1992 Poliovirus Vaccine Oral 15505 Given 1992 DTP Vaccine Vital Signs Date Vital Result Comment 08/17/2019 2:34pm BP Systolic 127 mmHg BP Diastolic 81 mmHg Body Temperature 99.2 F Heart Rate 89 /min Respiratory Rate 18 /min Height 71 inches 5'11" Weight 212.00 lb BMI (Body Mass Index) 29.6 kg/m2 BSA (Body Surface Area) 2.16 m2 [place] body weight in kilograms 78 kg O2 % BldC Oximetry 99 % 07/25/2019 1:03pm BP Systolic 122 mmHg BP Diastolic 80 mmHg Body Temperature 97.0 F Heart Rate 61 /min Respiratory Rate 18 /min Height 71 inches 5'11" Weight 211.50 lb BMI (Body Mass Index) 29.5 kg/m2 BSA (Body Surface Area) 2.16 m2 [place] body weight in kilograms 78 kg O2 % BldC Oximetry 96 % Results Test Acquired Date Facility Test Result H/L Range Note Comprehensive 07/01/[address] [facility] [address] Glucose 105 mg/dL Normal 74- 106 1 Metabolic Panel [address] [place] [address] [phone] BUN 18 mg/dL Normal 7-18 Creatinine 1.1 [...] Normal 3.4-10.[address] [place] [address] [phone] Red Blood Count 5.25 M/uL Normal 4.20-5.80 [...] 33.0-73.0 Lymph % 40.1 % Normal 20.0-42.0 [place] % 9.5 % Normal 0.0-10.0 Eo% 5.0 % Normal 0.0-6.6 Bas% 0.6 % Normal 0.0-1.1 Immature Grans 0.2 % Normal 0.0-5.0 NRBC % 0.0 /100WBC < 10/ 100 WBC Neut# 2.16 K/uL Normal 1.8-7.0 Lymph # 1.94 K/uL Normal 1.0-4.0 [place] # 0.46 K/uL Normal 0.0-0.8 Eos # 0.24 K/uL Normal 0.0-0.5 Baso # 0.03 K/uL Normal 0.0-0.1 Immature Grans Absolute 0.01 K/uL NRBC # 0.00 K/uL TSH Reflex 07/01/[address] Thyroid Stim 3.41 uIU/mL Normal 0.30-4.20 FT4 And/Or 4077 [facility] Hormone FT3 [place], [place] [address] [phone] Reflex add FT3? Y Reflex add FT4? Y Laboratory test 07/01/[address] Testosterone Free 13.9 9.3- 26.5 3 finding 4077 [facility] Direct pg/mL [place], [place] [address] [phone] LDL Cholesterol 07/01/[address] Cholesterol 188 mg/dL <200 4 Profile [address] [place], [place] [address] [phone] Triglycerides 116 mg/dL <150 5 HDL Cholesterol [...] 6.5-7.5 Ua Blood negative Negative Ua Specific [place] 1.020 1.010-1.030 Ua Ketones negative Negative Ua [...] [email or web address]. 3 Performed at: RN - [facility] [address] [id number] Conductor/Brakeman: Debra Ayala MD, Phone: [phone] Reference Guidelines*: Desirable: ........... < 200 [...] (NCEP) Procedures Date Code Description Status 07/25/2019 77633 Brief Emotional/Behav Assessment W/ Scoring Doc Per Completed Standard Inst 06/27/2019 07010 Brief Emotional/Behav Assessment W/ Scoring Doc Per Completed Standard Inst 04/20/2019 35946 Destruction Penis Lesion(S) Simple Laser Surgery Completed 03/21/2019 51191 Excision Of Warts Less Than 15 Completed [...] M25.[address] Pain in right [address] PNP-BC, CANCER GENETICS ASSISTANT, shoulder Ibclc Office Visit 06/08/2019 11:15a Family Medicine Dalia Wooten, M62.830 Muscle [address] of [address] PNP-BC, CANCER GENETICS ASSISTANT, back Ibclc Office Visit 05/20/2019 9:00a Urology [...] PA unspecified Assessments Date Code Description Provider 08/17/2019 J06.9 Acute upper respiratory infection, Bart Eli MD unspecified 07/25/2019 F43.23 Adjustment disorder with mixed Charu Hauser, PA anxiety and depressed mood 07/25/2019 F52.4 Premature ejaculation Charu Hauser PA 06/27/2019 F43.23 Adjustment disorder with mixed Analisa Charu, PA anxiety and depressed mood 06/27/2019 F52.4 Premature ejaculation Charu Hauser, PA 06/27/2019 Z13.220 Encounter for screening for lipoid Charu Hauser, PA disorders 06/16/2019 M25.511 Pain in right shoulder Dalia Wooten, PNP-BC, CANCER GENETICS ASSISTANT, Ibclc 06/08/2019 M62.830 Muscle spasm of back Dalia Wooten, PNP-BC, CANCER GENETICS ASSISTANT, Ibclc 05/20/2019 A63.0 Anogenital (venereal) warts Hema [...] new ones as well. [address], [place] [address] [phone]
--- OUTSIDE RECORDS SUMMARY | 2019-09-24 11:13 | XMS REPORT | Continuity of Care Document ---
:1990 External Reference #:[id number] Author Name Dalia Wooten, PNP-BC, DIGITAL PRODUCT SPECIALIST, Ibclc (transmitted by agent of provider Kym Beard) Address [address] [place], [place] [address] [address] [place] [id number] Care Team Providers Name Role Phone Charu Hauser PA - Medical Care Team Information Chief Sustainability Officer [phone] Charu Hauser PA - Medical Care Team Information Chief Sustainability Officer [phone] Problems Active Problems Provider Date Adjustment disorder [...] Medications Unknown 05/20/2019 - 06/08/2019 Saline Nasal [place] 2 sprays 1units J06.9 Bart Eli, 03/31/2019 - 0.65% intranasal every 05/20/2019 Solution 2 hours congestion or nasal dryness Immunizations CPT Code Status Date Vaccine Lot # 42938 Given 03/31/2019 Influenza Virus Vaccine, Quadrivalent, 36 Mos+, [id number] Given 1990 Hemophilus Influenza B 75283 Given 1990 DTP Vaccine 74856 Given 1992 Hemophilus Influenza B 54174 Given 1990 Poliovirus Vaccine Oral 31454 Given 1992 DTP Vaccine Vital Signs Date Vital Result Comment 08/18/2019 2:53pm BP Systolic 138 mmHg BP Diastolic 82 mmHg Body Temperature 98.1 F Heart Rate 97 /min Respiratory Rate 18 /min Height 71 inches 5'11" Weight 214.00 lb BMI (Body Mass Index) 29.8 kg/m2 BSA (Body Surface Area) 2.17 m2 [place] body weight in kilograms 78 kg O2 % BldC Oximetry 97 % 08/17/2019 2:34pm BP Systolic 127 mmHg BP Diastolic 81 mmHg Body Temperature 99.2 F Heart Rate 89 /min Respiratory Rate 18 /min Height 71 inches 5'11" Weight 212.00 lb BMI (Body Mass Index) 29.6 kg/m2 BSA (Body Surface Area) 2.16 m2 [place] body weight in kilograms 78 kg O2 % BldC Oximetry 99 % Results Test Acquired Date Facility Test Result H/L Range Note Comprehensive 07/01/[address] [facility] [address] Glucose 105 mg/dL Normal 74- 106 1 Metabolic Panel [address] [place] [address] [phone] BUN 18 mg/dL Normal 7-18 Creatinine 1.1 [...] Blood 4.8 K/uL Normal 3.4-10.[address] Count [place], [place] [id number] [phone] Red Blood Count 5.25 M/uL Normal 4.20-5.80 [...] 33.0-73.0 Lymph % 40.1 % Normal 20.0-42.0 [place] % 9.5 % Normal 0.0-10.0 Eo% 5.0 % Normal 0.0-6.6 Bas% 0.6 % Normal 0.0-1.1 Immature Grans 0.2 % Normal 0.0-5.0 NRBC % 0.0 /100WBC < 10/ 100 WBC Neut# 2.16 K/uL Normal 1.8-7.0 Lymph # 1.94 K/uL Normal 1.0-4.0 Forrest # 0.46 K/uL Normal 0.0-0.8 Eos # 0.24 K/uL Normal 0.0-0.5 Baso # 0.03 K/uL Normal 0.0-0.1 Immature Grans Absolute 0.01 K/uL NRBC # 0.00 K/uL TSH Reflex 07/01/[address] Thyroid Stim 3.41 uIU/mL Normal 0.30-4.20 FT4 And/Or [address] [facility] Hormone FT3 [place] [address] [phone] Reflex add FT3? Y Reflex add FT4? Y Laboratory test 07/01/[address] Testosterone Free 13.9 9.3- 26.5 3 finding [address] [facility] Direct pg/mL [place], [place] [address] [phone] LDL Cholesterol 07/01/[address] Cholesterol 188 mg/dL <200 4 Profile [address] [place], [place] [id number] [phone] Triglycerides 116 mg/dL <150 5 HDL Cholesterol [...] 6.5-7.5 Ua Blood negative Negative Ua Specific [place] 1.020 1.010-1.030 Ua Ketones negative Negative Ua [...] [email or web address]. 3 Performed at: [facility] [address] [id number] Supervisor Fitting: Debra Ayala MD, Phone: [phone] 4 Reference Guidelines*: Desirable: ........... < 200 [...] (NCEP) Procedures Date Code Description Status 07/25/2019 21522 Brief Emotional/Behav Assessment W/ Scoring Doc Per Completed Standard Inst 06/27/2019 35318 Brief Emotional/Behav Assessment W/ Scoring Doc Per Completed Standard Inst 04/20/2019 26115 Destruction Penis Lesion(S) Simple Laser Surgery Completed 03/21/2019 65036 Excision Of Warts Less Than 15 Completed Medical Devices Description No Information Available Encounters Type Date Location Provider Dx Diagnosis Office Visit 08/18/2019 Family Medicine Dalia Wooten J06.9 Acute upper 2:[address]p [address] PNP-BC, DIGITAL PRODUCT SPECIALIST, respiratory Ibclc infection, unspecified Office Visit 08/17/2019 [...] M25.511 Pain in right [address] PNP-BC, DIGITAL PRODUCT SPECIALIST, shoulder Ibclc Office Visit 06/08/2019 11:15a Family Medicine Dalia Wooten, M62.830 Muscle spasm of [address] PNP-BC, DIGITAL PRODUCT SPECIALIST, back Ibclc Office Visit 05/20/2019 9:00a Urology Ming, A63.0 Anogenital Allen Garrido (venereal) warts Office Visit 03/31/2019 8:10a Family Medicine Bart Eli, J06.9 Acute upper [facility] respiratory infection, unspecified Z23 Encounter for immunization Office Visit 03/24/2019 8:45a Urology Ming A63.0 Anogenital Allen Garrido (venereal) warts Office Visit 03/21/2019 8:15a Family Medicine Charu Hauser, B07.9 Viral wart, [address] PA unspecified Assessments Date Code Description Provider 08/18/2019 J06.9 Acute upper respiratory infection, Dalia Wooten PNP-BC, DIGITAL PRODUCT SPECIALIST, unspecified Ibclc 08/17/2019 J06.9 Acute upper respiratory infection, Bart Eli MD unspecified 07/25/2019 F43.23 Adjustment disorder with mixed Charu Hauser, PA anxiety and depressed mood 07/25/2019 F52.4 Premature ejaculation Charu Hauser, PA 06/27/2019 F43.23 Adjustment disorder with mixed AnalisaCharu bartlett, PA anxiety and depressed mood 06/27/2019 F52.4 Premature ejaculation Charu Hauser, PA 06/27/2019 Z13.220 Encounter for screening for lipoid Charu Hauser, PA disorders 06/16/2019 M25.511 Pain in right shoulder Dalia Wooten PNP-BC, DIGITAL PRODUCT SPECIALIST, Ibclc 06/08/2019 M62.830 Muscle spasm of back Dalia Wooten PNP-BC, MARYELLEN, Ibclc 05/20/2019 A63.0 Anogenital (venereal) warts Hema Lai M.D. 04/20/2019 A63.0 Anogenital (venereal) warts Hema Lai M.D. 03/31/2019 J06.9 Acute upper respiratory infection, Bart Eli MD unspecified 03/31/2019 Z23 Encounter for immunization Bart Eli MD 03/24/2019 A63.0 Anogenital (venereal) warts Hema Lai M.D. 03/21/2019 B07.9 Viral wart, unspecified Charu Hauser PA Plan of Treatment 08/18/2019 - Dalia Wooten PNP-BC, DIGITAL PRODUCT SPECIALIST, GmndbT65.9 Acute upper respiratory infection, unspecifiedComments:Supportive care Tylenol/Motrin [...] new ones as well. [address], [place] [address] [phone]
[2019-09-24 11:40] VITALS: BP 122/75
--- NOTE | 2019-09-24 11:41 | UC ---
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 He is here because of flulike symptoms since 1:30 this morning with fever, chills, body aches and occasional cough. 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 His fever approximate 2 hours ago was 100.9 when he took some Motrin. He states he feels much better today - History of Current Complaint Chief Complaint: UCRespiratory Stated Complaint: FEVER,CHILLS,ACHES Time Seen by Provider: 09/24/19 11:12 Hx Obtained From: Patient Onset/Duration: Sudden Onset, Lasting Hours Severity Currently: Mild Severity Initially: Moderate Pain Intensity: 0 Associated Signs & Symptoms: Positive: Fever, Myalgia, Cough, Headache - Patient 's headache has resolved. - Allergy/Home Medications Allergies/Adverse Reactions: Allergies Allergy/AdvReac Type Severity Reaction Status Date / Time No Known Allergies Allergy Verified 09/24/19 11:15 Home Medications: Home Medications Acetaminophen [Acetaminophen Extra Strength] 1,000 mg PO Q6H PRN 09/24/19 [ History Confirmed 09/24/19] Escitalopram * [Lexapro 5 mg (NF)] 5 mg PO DAILY 09/24/19 [History Confirmed ] FLUoxetine CAP* [PROzac CAP*] 10 mg PO DAILY 09/24/19 [History Confirmed ] PMH/Surg Hx/FS Hx/Imm Hx Previously Healthy: Yes - Surgical History Surgical History: Yes Surgery Procedure, Year, and Place: wisdom teeth - Family History Known Family History: Positive: Diabetes, Non-Contributory - Social History Occupation: Employed Full-time Alcohol Use: Rare Substance Use Type: None Smoking Status (MU): Never Smoked Tobacco Review of Systems All Other Systems Reviewed And Are Negative: Yes Constitutional: Positive: Fever, Chills, Fatigue Respiratory: Positive: Cough - Nonproductive occasional cough. Musculoskeletal: Positive: Myalgia Neurological/Mental Status: Positive: Headache - Headache has resolved. Is Patient Immunocompromised?: No Physical Exam Triage Information Reviewed: Yes Appearance: Well-Appearing, No Pain Distress, Well-Nourished Vital Signs: Initial Vital Signs Temp 97.8 F 09/24/19 11:12 Pulse 91 09/24/19 11:12 Resp 20 09/24/19 11:12 BP 122/75 09/24/19 11:12 Pulse Ox 97 09/24/19 11:12 Vital Signs Reviewed: Yes Eyes: Positive: Conjunctiva Clear ENT: Positive: Pharynx normal, TMs normal, Uvula midline Neck: Positive: Supple, Nontender, No Lymphadenopathy Respiratory: Positive: Lungs clear, Normal breath sounds, No respiratory distress, No accessory muscle use Cardiovascular: Positive: RRR, No Murmur, Pulses Normal, Brisk Capillary Refill Musculoskeletal Exam: Normal Neurological Exam: Normal Psychological Exam: Normal Skin Exam: Normal Flu Course/Dx - Course Course Of Treatment: Patient is comfortable here and does not appear ill. Patient was wearing a facemask while he was told. Rapid Flu test: Negative After donning full PPE, I entered the room to talk with the patient, to take Vital signs and to examine him. A nasal swab for COVID-19 was obtained. The patient is aware he will not be able to work until the results of the Covid 19 testing is back. He is agreeable to this plan of action. He has a spouse at home who is not ill so therefore I advised the patient should wear a mask at home and the spouse should wear one as well until the patient's results are back. - Differential Dx/Diagnosis Provider Diagnosis: Flu-like symptoms Discharge ED - Sign-Out/Discharge Documenting (check all that apply): Patient Departure All imaging exams completed and their final reports reviewed: No Studies - Discharge Plan Condition: Good Disposition: HOME Patient Education Materials: Viral Syndrome (ED) Forms: COVID-19 Tested & Isolation Referrals: Charu Hauser PA [Primary Care Provider] - Additional Instructions: Increase fluids, rest, avoid ibuprofen but may take Tylenol every 4 hours as directed for fever or body aches. You are not to leave your home or have visitors into your home until you get the results of your Covid testing. If you develop difficulty breathing, shortness of breath or worsening symptoms you' re to go to the emergency room for further treatment. - Billing Disposition and Condition Condition: GOOD Disposition: Home - Attestation Statements Provider Attestation: This patient was not seen by me. I was available for consult. Chart reviewed. CORDELL
[2019-09-24 11:54] LABS: Influenza A Molecular Negative (Negative); Influenza B Molecular Negative (Negative)
== END 2019-09-24 12:00 | disposition home or self-care (01) ==
LOC: UCCORT 10:57
DX: R50.9 Fever, unspecified (principal); M79.10 Myalgia, unspecified site; R05 Cough; Z20.828 Contact with and (suspected) exposure to other viral communicable diseases
CPT/HCPCS: 87635; 99211; G0463; U0003